=== PATIENT | female | born 1995 | race Caucasian/White ===

== ENCOUNTER 2020-02-13 12:23 | Outpatient (REF) | payer OTHER, SELFPAY ==
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
== END 2020-02-13 12:24 | disposition home or self-care (01) ==
LOC: HO.XRAY 12:23
PROVIDERS: PCP Internal Medicine; Visit Provider Internal Medicine
DX: M54.5 Low back pain (principal); G44.1 Vascular headache, not elsewhere classified; V89.2XXD Person injured in unspecified motor-vehicle accident, traffic, subsequent encounter
CPT/HCPCS: 72050; 72110

== ENCOUNTER → 2020-02-28 11:23 | Outpatient (BNVA) | payer OTHER, SELFPAY | PROVIDERS: PCP Internal Medicine; Visit Provider Advanced Practice Midwife | DX: N92.1 Excessive and frequent menstruation with irregular cycle (principal); Z97.5 Presence of (intrauterine) contraceptive device | CPT/HCPCS: 99212 ==

== ENCOUNTER 2020-10-23 21:07 | Emergency (ER) | payer OTHER, SELFPAY ==
[2020-10-23 21:31] VITALS: BP 104/50; PULSE 70; RESP 16; TEMP 36.5; O2SAT 99; BMI 22.6
--- NOTE | 2020-10-23 23:36 | ED.URI ---
HPI - URI/Sore Throat General Chief Complaint: Headache Stated Complaint: Flu like symptoms Time Seen by Provider: 10/23/20 23:25 Source: patient Mode of arrival: ambulatory Limitations: no limitations History of Present Illness HPI Narrative: Pt is a 25yo F with no sig past med hx who states she woke up this morning with a sore throat, has since developed body aches and a headache. denies nausea, vomiting, diarrhea or fevers. Denies sick contacts, is not covid or flu vaccinated. Denies sob or cp. Related Data Home Medications Medication Instructions Recorded Confirmed etonogestrel 68 mg subdermal SUBDERMAL 02/28/20 implant Previous Rx's Medication Instructions Recorded cyclobenzaprine 5 mg tablet 5 mg PO BEDTIME PRN #20 tab 02/12/20 Allergies Allergy/AdvReac Type Severity Reaction Status Date / Time No Known Allergies Allergy Verified 10/23/20 21:36 Review of Systems Review of Systems: Yes all other systems are reviewed and are negative [facility] Past Medical History Surgical History Hx of section Family History Family History Maternal Grandmother History of breast cancer Social History Social History Alcohol intake: never Advance Directives: No Patient : No Sexual orientation: Straight/Heterosexual Gender identity: female Physical Exam Vital Signs: Vital Signs: Last Vital Signs Temp 97.7 F 10/23/20 21:31 Pulse 70 10/23/20 21:31 Resp 16 10/23/20 21:31 BP 104/50 L 10/23/20 21:31 Pulse Ox 99 10/23/20 21:31 Body Mass Index 22.6 Const: General: cooperative, healthy appearing, comfortable, no acute distress and well developed Orientation/consciousness: patient oriented x3 Limitations: no limitations HENMT: Head: Yes normal to inspection Eyes: General: appearance normal, both eyes and all related structures Neck: Neck: Yes normal visual inspection and Yes full ROM Resp: Effort & Inspection: normal respiratory effort and able to speak in complete sentences Auscultation: clear to auscultation bilaterally Cardio: Rate: regular rate Rhythm: regular rhythm Heart sounds: normal S1 and S2 Skin: General skin exam: no rashes or lesions noted Neuro: General: patient oriented x3 Extrem: General: Yes normal to inspection Discharge Plan Discharge Clinical Impression: Upper respiratory infection Qualifiers: URI type: unspecified viral URI Qualified Code(s): J06.9 - Acute upper respiratory infection, unspecified Patient Disposition: Home, Self-Care Instructions: COVID-19 (Coronavirus Disease 2019) (ED) Additional Instructions: You have been tested for Covid 19, Flu, RSV and strep throat. If you test positive for any of these, we will call you. I have attached instructions on Covid-19 in the event you test positive, if you test negative, you do not need to abide by these instructions. If you test positive for strep throat, I will send a prescription to your pharmacy for an antibiotic. Please be sure to rest, stay well hydrated and manage your symptoms with over the counter medications. Prescriptions: No Action cyclobenzaprine 5 mg tablet 5 mg PO BEDTIME PRN (Reason: muscle spasm) Qty: 20 RF: 0 Nexplanon 68 mg implant subdermal RF: 0 Stand Alone Forms: Work/School Release
[2020-10-24 00:24] LABS: Strep A Nucleic Acid Negative (Negative)
[2020-10-24 00:56] LABS: Influenza A PCR NEGATIVE (Negative); Influenza B PCR NEGATIVE (Negative); Resp Syncy Virus RNA Qual PCR NEGATIVE (Negative); SARS COV2 PCR INHOUSE NEGATIVE (Negative)
== END 2020-10-24 00:11 | disposition home or self-care (01) ==
PROVIDERS: Physician Assistant; Emergency Provider Student in an Organized Health Care Education/Training Program
DX: J06.9 Acute upper respiratory infection, unspecified (principal); Z20.822 Contact with and (suspected) exposure to COVID-19
CPT/HCPCS: 0241U; 36415; 87651; 99283

== ENCOUNTER → 2021-07-17 15:16 | Outpatient (BNVA) | payer OTHER, SELFPAY | PROVIDERS: PCP Internal Medicine; Visit Provider Advanced Practice Midwife | DX: N92.1 Excessive and frequent menstruation with irregular cycle (principal); Z30.46 Encounter for surveillance of implantable subdermal contraceptive | CPT/HCPCS: Q3014 ==

== ENCOUNTER → 2021-08-18 14:36 | Outpatient (BNVA) | payer OTHER, SELFPAY | PROVIDERS: PCP Internal Medicine; Visit Provider Advanced Practice Midwife | DX: Z30.46 Encounter for surveillance of implantable subdermal contraceptive (principal) | CPT/HCPCS: 11982 ==

== ENCOUNTER 2022-12-25 16:21 | Emergency (ER) | payer MEDICAID, SELFPAY ==
[2022-12-25 16:40] VITALS: BP 103/60; PULSE 113; RESP 18; TEMP 37; O2SAT 96; BMI 24.2
[2022-12-25 17:28] LABS: COVID-19 Test Negative (Negative); IDNOW Serial# 55D5AD1C; IDNOW Serial# 6674DD1D; Influenza A Negative (Negative); Influenza B2 Negative (Negative)
--- NOTE | 2022-12-25 19:21 | ED_ITS ---
HPI - URI/Sore Throat General Chief Complaint: Upper Respiratory Symptoms Stated Complaint: sob,coughing Time Seen by Provider: 12/25/22 19:15 Source: patient Mode of arrival: ambulatory Limitations: no limitations History of Present Illness HPI Narrative: 27 yo female currently 19 weeks with history of childhood asthma presents to the ER for evaluation of an ongoing cough for the last 2 months. Sh e states she had childhood asthma but nothing in adulthood. She states she has been coughing randomly throughout the days and nights. Nothing seems to make it better or worse. She was prescribed an albuterol inhaler with minimal relief. She states she has been using her son's albuterol nebulizer at home with intermittent improvement. She states yesterday the cough started being productive of white phlegm. No fever or chills. No known sick contacts. She states she has chest discomfort when she coughs. No nausea, vomiting, abdominal pain. MD elicited complaint: cough Onset (ago): month(s) (2) Consistency: intermittent Severity: moderate Description of mucous: clear Able to tolerate fluids by mouth: Yes Exacerbating factors: nothing Relieving factors: nothing Associated symptoms: denies other symptoms Treatments prior to arrival: none Related Data Previous Rx's Medication Instructions Recorded vitamin with calcium 1 tab PO DAILY #30 tabs 07/17/21 no.72-iron 27 mg-folic acid 1 mg tablet ( Vitamins Plus Low Iron) albuterol sulfate 2.5 mg/0.5 mL 5 mg inhalation Q6H PRN shortness 12/25/22 solution for nebulization of breath or wheezing #30 ea azithromycin 250 mg tablet See Rx Instructions PO .COMPLEX #6 12/25/22 (Zithromax Z-Omar) tabs prednisone 20 mg tablet 40 mg PO DAILY #10 tabs 12/25/22 Allergies Allergy/AdvReac Type Severity Reaction Status Date / Time No Known Allergies Allergy Verified 08/18/21 15:11 Review of Systems Review of Systems: Yes all other systems are reviewed and are negative [facility] Past Medical History Surgical History Hx of section Family History Family History Maternal Grandmother History of breast cancer Social History Social History Alcohol intake: never Advance Directives: No Advance Directives Information Provided: Yes Sexual orientation: Straight/Heterosexual Gender identity: Female Physical Exam Vital Signs: Vital Signs: Last Vital Signs Temp 98.6 F 12/25/22 16:40 Pulse 93 12/25/22 19:55 Resp 16 12/25/22 19:55 BP 103/60 12/25/22 16:40 Pulse Ox 96 12/25/22 16:40 O2 Del Method Room Air 12/25/22 16:40 BMI result Body Mass Index 24.2 Appearance: Alert. Oriented X3. No acute distress. Head: normocephalic, atraumatic. Eyes: Pupils equal, round and reactive to light. ENT: Pharynx normal. No tonsillar swelling or exudate. Neck: Normal inspection. Neck supple. CVS: Normal heart rate and rhythm. Pulses normal. Respiratory: No respiratory distress. Breath sounds with scattered expiratory wheezes throughout. Speaking in complete sentences Abdomen: Soft with gravid uterus to the level of hte umbilicus, nontender +BS x4 Skin: Skin warm and dry. Normal skin color. Normal skin turgor. No rashes. Extremities: No lower extremity edema. No joint swelling. Neuro/psych: Oriented X 3. nonfocal. CN II-XII intact. Normal speech and cognition. Course Reevaluation(s) Reevaluation #1: patient treated wt albuterol nebulizer in upon re-evaluation patient's wheezing has significantly improved. She is feeling much better. She is stable for discharge home with treatment for acute asthma. Medications Administered Discontinued Medications Generic Name Dose Route Start Last Admin Trade Name Freq PRN Reason Stop Dose Admin Albuterol Sulfate 5 mg 12/25/22 19:34 12/25/22 19:52 Albuterol Sulfate (0.083%) 2.5 Mg/3 Ml Vial.Neb INHALE 12/25/22 19:35 5 mg ONCE ONE Administration Prednisone 40 mg 12/25/22 19:34 12/25/22 19:39 Prednisone 20 Mg Tablet PO 12/25/22 19:35 40 mg ONCE ONE Administration Medical Decision Making Medical Decision Making MDM Narrative: 27-year-old female presenting to the ER for evaluation of cough for the last 2 months. No history of adult asthma issues. On exam she is saturating well and speaking in complete sentences but she has extra ron wheezes scattered throughout. No rhonchi on exam. Low clinical suspicion for pneumonia. Her viral studies are negative. Patient was given a dose of prednisone and a 5 mg albuterol nebulizer with significant improvement in her wheezing and aeration. She continues to saturate well, no hypoxia or increased work of breathing. Will plan to start her on prednisone, azithromycin, albuterol nebulizers for home. Will plan to have her follow-up with pulmonology for further evaluation and treatment. She will follow-up with her OB as well. She is stable for discharge home Differential Diagnosis Differential Diagnoses: The differential diagnosis associated with the presentation includes strep, covid, flu, rsv, other viral syndrome, bronchitis, pneumonia, asthma exacerbation Admission/Observation Consideration of admission/observation: Escalation of care including adm ission/observation considered Shortness of breath and wheezing, considered observation Lab Data MDM Lab Attestation statement: I reviewed the patient's lab results. Labs: Lab Results 12/25/22 12/25/22 Range/Units 17:05 17:05 COVID-19 ([place]) Negative (Negative) COVID-19 Clin Com See Note Influenza Type A ([facility]) Negative (Negative) Influenza Type B ([facility]) Negative (Negative) Influenza A & B Note See Note Tests considered The following testing was considered but not selected: Consider chest x-ray but low clinical suspicion for pneumonia, deferred given pr egnancy Prescription Management I considered prescription management with: Antibiotic and Other (Prednisone and bronchodilators) Critical Care Time Critical Care Time Critical Care Time: No Discharge Plan Discharge Clinical Impression: Asthma Patient Disposition: Home, Self-Care Instructions: Asthma (DC) Additional Instructions: You tested negative for COVID and Flu Use the nebs as needed for wheezing Take the prescribed prednisone medication as directed, complete the entire course Take the prescribed antibiotic as directed, complete the entire course Recommend following up with Pulmonology - call for an appointment. Follow up with your [facility] If you develop new or worsening symptoms call 911 or come back to the ER for further evaluation. Cough,?Cold and Flu Robitussin Cough (check which ones, some should not be used in 1st trimester), Trind-DM, Vicks?Cough Syrup [email or web address]/liev-hqs-[email or web address]-[email or web address]-[email or web address]-medicine Saline nasal drops or sprayActifed [email or web address].com/drugs/[email or web address]/[email or web address]/actifed+oral/details , Silva Jonas Nasacort,?Sudafed [email or web address]/[email or web address]/drug-[email or web address]/sudafed+oral/details ?(Check with your doctor first.?Do not use in first?trimester.)Tylenol ?or Tylenol Cold (limit dose and duration of usage)Warm salt/water gargle*Do not take SA (sustained action) forms or Multi-Symptom forms of these drugs. Prescriptions: New prednisone 20 mg tablet 40 mg PO DAILY Qty: 10 0RF azithromycin [Zithromax Z-Omar] 250 mg tablet See Rx Instructions .ROUTE .COMPLEX Qty: 6 0RF Rx Instructions: take 500 mg today (day 1), then 250 mg for 4 days (days 2-5) albuterol sulfate 2.5 mg/0.5 mL solution for nebulization 5 mg inhalation Q6H PRN (Reason: shortness of breath or wheezing) Qty: 30 0RF No Action Vitamin Plus Low Iron 27 mg iron- 1 mg tablet 1 tab PO DAILY Qty: 30 11RF Referrals: Jazmin Patel MD [Primary Care Provider] -
[2022-12-25] MEDS: predniSONE 20 MG TABLET 40 MG PO (19:39)
[2022-12-25] MEDS: Albuterol Sulfate (0.083%) 2.5 MG/3 ML VIAL.NEB 5 MG INHALE (19:52)
[2022-12-25 19:55] VITALS: PULSE 93; RESP 16; O2SAT 97
[2022-12-25 21:47] VITALS: BP 109/61; PULSE 95; RESP 18; TEMP 36.8; O2SAT 97
== END 2022-12-25 21:50 | disposition home or self-care (01) ==
PROVIDERS: Emergency Provider Student in an Organized Health Care Education/Training Program; PCP Internal Medicine
DX: O99.512 Diseases of the respiratory system complicating pregnancy, second trimester (principal); J45.909 Unspecified asthma, uncomplicated; Z3A.19 19 weeks gestation of pregnancy; Z20.822 Contact with and (suspected) exposure to COVID-19
CPT/HCPCS: 87502; 87635; 94640; 99284